=== PATIENT | female | born 1980 | race Hispanic/Latino ===

== ENCOUNTER → 2023-04-01 | Day surgery (SDC) | payer BC ==
[~2023-04-01] MED LIST: ACYCLOVIR200 MG PO; AMPICILLIN PO; DONNATAL/LIDOCAINE/MAALOX 30 ML SUSP PO ONE; DONNATAL/LIDOCAINE/MAALOX 30 ML SUSP PO STA; LACTATED RINGER'S 1,000 ML ONE; PROPOFOL IV EMULSION 50 ML IV ONE
[2023-04-01 13:25] VITALS: TEMP 97.1
[2023-04-01 14:10] VITALS: BP 131/83; PULSE 81; RESP 17; O2SAT 100
== END | disposition home or self-care (01) ==
LOC: OR 10:03
PROVIDERS: ATTEND Internal Medicine Gastroenterology
DX: K29.50 Unspecified chronic gastritis without bleeding (principal); D3A.8 Other benign neuroendocrine tumors; K31.7 Polyp of stomach and duodenum; K29.80 Duodenitis without bleeding; K21.9 Gastro-esophageal reflux disease without esophagitis; D72.820 Lymphocytosis (symptomatic); K20.90 Esophagitis, unspecified without bleeding; K59.09 Other constipation; K62.89 Other specified diseases of anus and rectum; K64.8 Other hemorrhoids; Z71.3 Dietary counseling and surveillance; Z88.6 Allergy status to analgesic agent; Z68.28 Body mass index [BMI] 28.0-28.9, adult
CPT/HCPCS: 43239; 45385; C9113; J2704; J7121; 45378

== ENCOUNTER → 2023-04-21 | Day surgery (SDC) | payer BC ==
[~2023-04-21] MED LIST changes: -DONNATAL/LIDOCAINE/MAALOX 30 ML SUSP PO ONE; -DONNATAL/LIDOCAINE/MAALOX 30 ML SUSP PO STA; +LIDOCAINE HCL 2% LOCAL INJ 5 ML SDV VIAL INJ ONE; +ONDANSETRON HCL INJ 2MG/ML 2ML 2 MG/ML VIAL ONE; +PANTOPRAZOLE SO40 MG PO; +POVIDONE IODINE 0.05% 0.05 % ML PO ONE; +TYLENOL325 MG PO
[2023-04-21 14:14] VITALS: TEMP 97
[2023-04-21 14:40] VITALS: BP 123/82; PULSE 79; RESP 18; O2SAT 100
== END | disposition home or self-care (01) ==
LOC: OR 12:24
PROVIDERS: ATTEND Internal Medicine Gastroenterology
DX: D3A.8 Other benign neuroendocrine tumors (principal); K64.8 Other hemorrhoids; R14.0 Abdominal distension (gaseous); K21.9 Gastro-esophageal reflux disease without esophagitis; Z79.899 Other long term (current) drug therapy; Z68.28 Body mass index [BMI] 28.0-28.9, adult; Z87.19 Personal history of other diseases of the digestive system; Z85.040 Personal history of malignant carcinoid tumor of rectum
CPT/HCPCS: 45380; J2001; J2405; J2704; J7121; 45330

== ENCOUNTER → 2024-08-15 | Day surgery (SDC) | payer OTHER ==
[~2024-08-15] MED LIST changes: +IBUPROFEN400 MG PO; -LACTATED RINGER'S 1,000 ML ONE; -ONDANSETRON HCL INJ 2MG/ML 2ML 2 MG/ML VIAL ONE; -POVIDONE IODINE 0.05% 0.05 % ML PO ONE; +PROPOFOL IV EMULSION 10 MG/ML 20 ML VIAL ONE
[2024-08-15] MEDS: LACTATED RINGER'S 1,000 ML ONE (09:51)
[2024-08-15] MEDS: ONDANSETRON HCL INJ 2MG/ML 2ML 2 MG/ML VIAL ONE (14:20)
[2024-08-15 14:50] VITALS: BP 134/85; PULSE 70; RESP 16; TEMP 97; O2SAT 100
== END | disposition home or self-care (01) ==
LOC: OR 09:17
PROVIDERS: ATTEND Internal Medicine Gastroenterology
DX: K29.70 Gastritis, unspecified, without bleeding (principal); D3A.026 Benign carcinoid tumor of the rectum; K31.7 Polyp of stomach and duodenum; K20.90 Esophagitis, unspecified without bleeding; K31.89 Other diseases of stomach and duodenum; K62.89 Other specified diseases of anus and rectum; K57.90 Diverticulosis of intestine, part unspecified, without perforation or abscess without bleeding; K21.9 Gastro-esophageal reflux disease without esophagitis; K64.8 Other hemorrhoids; Z85.038 Personal history of other malignant neoplasm of large intestine; K76.0 Fatty (change of) liver, not elsewhere classified; E78.5 Hyperlipidemia, unspecified; Z88.6 Allergy status to analgesic agent; Z79.1 Long term (current) use of non-steroidal anti-inflammatories (NSAID); Z79.899 Other long term (current) drug therapy
CPT/HCPCS: 43239; 43251; 45380; J2001; J2405; J2470; J2704 ×2; J7121; 45378